=== PATIENT | male | born 1945 | race Caucasian/White ===

== ENCOUNTER 2017-12-16 13:24 | Emergency (ER) | payer MEDICARE, OTHER ==
[~2017-12-16] VITALS: Ht 182.9 cm; Wt 68.0 kg
[~2017-12-16 13:24] MED LIST: ATEN-104 PO; GLUCTAB OR; LISI-363 PO; OXYC40TA20 PO
[2017-12-16 13:37] VITALS: BP 150/80; PULSE 75; RESP 19; TEMP 98.4; O2SAT 93
[2017-12-16] MEDS ORDERED: ASPI81CH6 CHEW (13:44)
[2017-12-16] MEDS ORDERED: OXYC-406 PO (13:44)
[2017-12-16] MEDS ORDERED: ATEN100T PO (13:44)
[2017-12-16] MEDS ORDERED: LISI40TA PO (13:44)
[2017-12-16] MEDS ORDERED: METF1000 PO (13:44)
[2017-12-16] MEDS ORDERED: SODIUM CHLORIDE 0.9% FLUSH 10 ML FLUSH IVF PRN (13:45)
[2017-12-16] MEDS ORDERED: NITROGLYCERIN 2% OINT 1 GM PACKET TOP ONE (13:45)
[2017-12-16] MEDS ORDERED: MORPHINE SULFATE 4 MG/ML INJ IV PUSH ONE (13:45)
--- NOTE | 2017-12-16 13:46 | PD ---
HPI Chief Complaint: Chest Pain Time Seen by Provider: 13:36 Travel History International Travel<30 days: No Contact w/Intl Traveler<30days: No Traveled to known affect area: No History of Present Illness HPI Patient comes in complaining of any intermittent chest pain that has been ongoing for the past 2 months. However the past 1 hour it became steady, 10 out of 10, radiating to his left shoulder, over his left pectoralis region. Patient took 1 of his own baby aspirins prior to arrival. Per significant other , the patient continues to drink, smoke. No known drug allergies Past medical history significant for coronary artery artery stent in 2004 done in [place], hypertension, diabetes, rheumatoid arthritis. PFSH Past Medical History Arthritis: Yes (RHEUMATOID) Cardiovascular Problems: Yes Diabetes: Yes Diminished Hearing: No Hypertension: Yes Past Surgical History Coronary Stent: Yes Social History Alcohol Use: Yes (OCC) Tobacco Use: No Substance Use: No Allergies-Medications (Allergen,Severity, Reaction): Coded Allergies: No Known Allergies (Verified Adverse Reaction, Unknown, 12/16/17) Reported Meds & Prescriptions Reported Meds & Active Scripts Active Reported Vitamin B-12 (Cyanocobalamin) 250 Mcg Tab 250 Mcg PO DAILY Neurontin (Gabapentin) 300 Mg Cap 300 Mg PO BID Oxycodone ER (Oxycodone HCl) 40 Mg Tab 40 Mg PO Q8HR Aspirin Low Dose (Aspirin) 81 Mg Chew 81 Mg CHEW DAILY Metformin (Metformin HCl) 1,000 Mg Tab 1,000 Mg PO BIDPC Lisinopril 40 Mg Tab 40 Mg PO BID Atenolol 100 Mg Tab 100 Mg PO DAILY Review of Systems General / Constitutional: No: Fever Eyes: No: Visual changes HENT: No: Headaches Cardiovascular: Positive: Chest Pain or Discomfort Respiratory: No: Shortness of Breath Gastrointestinal: No: Abdominal Pain Genitourinary: No: Dysuria Musculoskeletal: No: Pain Skin: No Rash Neurologic: No: Weakness Psychiatric: No: Depression Endocrine: No: Polydipsia Hematologic/Lymphatic: No: Easy Bruising Physical Exam Narrative GENERAL: SKIN: Warm and dry. HEAD: Atraumatic. Normocephalic. EYES: Pupils equal and round. No scleral icterus. No injection or drainage. ENT: No nasal bleeding or discharge. Mucous membranes pink and moist. NECK: Trachea midline. No JVD. CARDIOVASCULAR: Regular rate and rhythm. RESPIRATORY: No accessory muscle use. Clear to auscultation. Breath sounds equal bilaterally. GASTROINTESTINAL: Abdomen soft, non-tender, nondistended. MUSCULOSKELETAL: Extremities without clubbing, cyanosis, or edema. No obvious deformities. NEUROLOGICAL: Awake and alert. No obvious cranial nerve deficits. Motor grossly within normal limits. Five out of 5 muscle strength in the arms and legs. Normal speech. PSYCHIATRIC: Appropriate mood and affect; insight and judgment normal. Data Data Last Documented VS Vital Signs Date Time Temp Pulse Resp B/P (MAP) Pulse Ox O2 Delivery O2 Flow Rate FiO2 12/16/17 14:08 71 152/76 (101) 12/16/17 14:08 18 96 Room Air 12/16/17 13:37 98.4 Orders Orders Electrocardiogram (12/16/17 13:42) B-Type Natriuretic Peptide (12/16/17 13:42) Ckmb (Isoenzyme) Profile (12/16/17 13:42) Complete Blood Count With Diff (12/16/17 13:42) Comprehensive Metabolic Panel (12/16/17 13:42) Magnesium (Mg) (12/16/17 13:42) Prothrombin Time / Inr (Pt) (12/16/17 13:42) Act Partial Throm Time (Ptt) (12/16/17 13:42) Troponin I (12/16/17 13:42) Lipase (12/16/17 13:42) Chest, Single Ap (12/16/17 13:42) Ecg Monitoring (12/16/17 13:42) Bilateral Bp Monitoring (12/16/17 13:42) Iv Access Insert/Monitor (12/16/17 13:42) Oximetry (12/16/17 13:42) Oxygen Administration (12/16/17 13:42) Morphine Inj (Morphine Inj) (12/16/17 13:45) Nitroglycerin 2% Oint (Nitroglycerin 2% (12/16/17 13:45) Sodium Chloride 0.9% Flush (Ns Flush) (12/16/17 13:45) Labs Laboratory Tests Test 12/16/17 14:00 White Blood Count 10.5 TH/MM3 Red Blood Count 4.95 MIL/MM3 Hemoglobin 15.2 GM/DL Hematocrit 45.2 % Mean Corpuscular Volume 91.3 FL Mean Corpuscular Hemoglobin 30.7 PG Mean Corpuscular Hemoglobin Concent 33.6 % Red Cell Distribution Width 14.8 % Platelet Count 250 TH/MM3 Mean Platelet Volume 9.1 FL Neutrophils (%) (Auto) 72.3 % Lymphocytes (%) (Auto) 14.8 % Monocytes (%) (Auto) 8.7 % Eosinophils (%) (Auto) 3.8 % Basophils (%) (Auto) 0.4 % Neutrophils # (Auto) 7.6 TH/MM3 Lymphocytes # (Auto) 1.6 TH/MM3 Monocytes # (Auto) 0.9 TH/MM3 Eosinophils # (Auto) 0.4 TH/MM3 Basophils # (Auto) 0.0 TH/MM3 CBC Comment DIFF FINAL Differential Comment Prothrombin Time 10.4 SEC Prothromb Time International Ratio 1.0 RATIO Activated Partial Thromboplast Time 28.0 SEC Blood Urea Nitrogen 14 MG/DL Creatinine 1.10 MG/DL Random Glucose 140 MG/DL Total Protein 7.4 GM/DL Albumin 3.7 GM/DL Calcium Level 9.0 MG/DL Magnesium Level 1.6 MG/DL Alkaline Phosphatase 152 U/L Aspartate Amino Transf (AST/SGOT) 18 U/L Alanine Aminotransferase (ALT/SGPT) 20 U/L Total Bilirubin 0.6 MG/DL Sodium Level 141 MEQ/L Potassium Level 4.6 MEQ/L Chloride Level 108 MEQ/L Carbon Dioxide Level 25.2 MEQ/L Anion Gap 8 MEQ/L Estimat Glomerular Filtration Rate 66 ML/MIN Total Creatine Kinase 92 U/L Troponin I 0.08 NG/ML Lipase 82 U/L MDM Medical Decision Making Medical Screen Exam Complete: Yes Emergency Medical Condition: Yes Medical Record Reviewed: Yes Differential Diagnosis STEMI versus pneumonia versus pneumothorax versus non-STEMI versus bronchitis Narrative Course That he had to leave and that he would not mind returning on Thursday to get cath and stenting done. I made the patient aware this is not having a what Jaspreet non-STEMI is not something that you schedule, but it is a study/procedure that needs to be done as soon as possible. By him deciding against this and by signing the AMA he is assuming responsibility for his decision and their results. Which can include , congestive heart failure, cardiomyopathy, end -stage cardiac condition, COMATOSE, PERMANENT NEUROLOGIC DEFICIENCY AMA: The risks of leaving against medical advice without further evaluation treatment were discussed with the patient. These risks include cardiac dysfunction, cardiac dysrhythmia, possible heart attack, possible stroke or . The patient indicated understanding of these risks and appeared to have the capacity to make this decision. Patient also refused to give any additional contact information to try and involve his family in this type of irrational medical decision. Although the patient is making an irrational decision he does have the mental capacity to engage in his care, despite the fact that he is making up very poor decision. Every effort was made to contact family. Diagnosis Primary Impression: Chest pain rule out [place] Additional Impressions: Non-STEMI AMA Disposition: 07 AGAINST MEDICAL ADVICE Mariano Cerrato MD December 16, 2017 13:46
[2017-12-16 13:47] VITALS: O2SAT 94
[2017-12-16] MEDS ORDERED: VITA250T5 PO (13:47)
[2017-12-16] MEDS ORDERED: NEUR300C PO (13:47)
[2017-12-16 14:08] VITALS: BP 152/76; PULSE 71
[2017-12-16 14:19] LABS: AUTOMATED NEUTROPHIL # 7.6 TH/MM3 (1.8-7.7); BASOPHIL % 0.4 % (0.0-2.0); EOSINOPHIL # 0.4 TH/MM3 (0-0.4); EOSINOPHIL % 3.8 % (0.0-4.0); HEMATOCRIT 45.2 % (39.0-51.0); HEMOGLOBIN 15.2 GM/DL (13.0-17.0); LYMPH % 14.8 % (9.0-44.0); LYMPHOCYTE # 1.6 TH/MM3 (1.0-4.8); MEAN CELL VOLUME 91.3 FL (80.0-100.0); MEAN CORPUSCULAR HEMOGLOBIN 30.7 PG (27.0-34.0); MEAN CORPUSCULAR HGB CONC 33.6 % (32.0-36.0); MEAN PLATELET VOLUME 9.1 FL (7.0-11.0); MONO % 8.7 % (0.0-8.0); MONOCYTE # 0.9 TH/MM3 (0-0.9); NEUT % 72.3 % (16.0-70.0); PLATELET COUNT 250 TH/MM3 (150-450); RED BLOOD COUNT 4.95 MIL/MM3 (4.50-5.90); RED CELL DISTRIBUTION WIDTH 14.8 % (11.6-17.2); WHITE BLOOD COUNT 10.5 TH/MM3 (4.0-11.0)
[2017-12-16 14:28] LABS: PROTHROMBIN TIME - PATIENT 10.4 SEC (9.8-11.6)
[2017-12-16 14:42] LABS: ALBUMIN 3.7 GM/DL (3.4-5.0); AST (GOT) 18 U/L (15-37); BICARBONATE 25.2 MEQ/L (21.0-32.0); BLOOD UREA NITROGEN 14 MG/DL (7-18); CHLORIDE 108 MEQ/L (98-107); GLOMERULAR FILTRATION RATE 66 ML/MIN (>89); GLUCOSE,RANDOM 140 MG/DL (74-106); MAGNESIUM 1.6 MG/DL (1.5-2.5); SODIUM (NA) 141 MEQ/L (136-145)
--- NOTE | 2017-12-16 14:42 | RADRPT ---
EXAM DATE/TIME: 12/16/2017 14:15 [facility] COMPARISON: No previous studies available for comparison. INDICATIONS : Chest pain. MEDICAL HISTORY : Heart attack. SURGICAL HISTORY : Heart stent. ENCOUNTER: Initial ACUITY: 1 day PAIN SCORE: 7/10 LOCATION: Bilateral chest FINDINGS: The lungs are clear. The heart is minimally enlarged. The pulmonary vascularity is normal. There is n o evidence for infiltrate or failure. The portion of the bony skeleton visualized is unremarkable. CONCLUSION: Compensated cardiomegaly otherwise negative Board Certified Radiologist. This report was verified electronically.
[2017-12-16 14:47] LABS: ALKALINE PHOSPHATASE 152 U/L (45-117); ALT (GPT) 20 U/L (12-78); TOTAL BILIRUBIN ADULT 0.6 MG/DL (0.2-1.0); TOTAL PROTEIN 7.4 GM/DL (6.4-8.2); TROPONIN I 0.08 NG/ML (0.02-0.05)
--- NOTE | 2017-12-17 20:03 | EKG ---
Date Performed: 12/16/2017 Time Performed: 13:34:39 PTAGE: 72 years EKG: Sinus rhythm Poor R wave progression, could be due to lead placement. Old anterior infarct. NORMAL ECG NO PREVIOUS TRACING DOCTOR: Etienne Pugh Interpretating Date/Time 12/17/2017 20:01:54
== END 2017-12-16 15:20 | disposition left against medical advice (07) ==
LOC: NEPC 13:24
DX: R07.9 Chest pain, unspecified (principal); E11.9 Type 2 diabetes mellitus without complications; I10 Essential (primary) hypertension; Z79.84 Long term (current) use of oral hypoglycemic drugs; Z79.899 Other long term (current) drug therapy
CPT/HCPCS: 71045; 80053; 82550; 83690; 83735; 83880; 84484; 85025; 85610; 85730; 93005; 99285